=== PATIENT | female | born 1970 | race Caucasian/White ===

== ENCOUNTER 2017-07-11 05:26 | Day surgery (SDC) | payer MEDICAID, SELFPAY ==
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
[2017-07-11] VITALS (9 sets, daily range): BP systolic 96–126; BP diastolic 58–89; PULSE 65–84; RESP 16; TEMP 36–36.9; O2SAT 91–98; BMI 24.3
[2017-07-11] MEDS: Cefazolin 2 GM in 0.9% Normal Saline 100 ML IV (07:17)
[2017-07-11] MEDS: Betamethasone/Betamethasone 30 MG/5 ML Vial (07:28)
--- NOTE | 2017-07-11 10:29 | PCM.OPRPT ---
Report of Operation Date of Procedure: 07/11/17 Pre-Operative Diagnosis: 1. Left first carpometacarpal joint osteoarthritis. 2. Left carpal tunnel syndrome. 3. Right first carpometacarpal joint osteoarthritis Post-Operative Diagnosis: 1. Left first carpometacarpal joint osteoarthritis. 2. Left carpal tunnel syndrome. 3. Right first carpometacarpal joint osteoarthritis Surgery/Procedure Performed:: 1. Left first carpometacarpal joint resection arthroplasty. 2. Left FCR tendon transfer. 3. Left carpal tunnel release. 4. Right first carpometacarpal joint injection Description of Surgical Findings:: Well reconstructed joint, complete release left transverse carpal ligament senior wind turbine technician: Harrison Mendes Type of Anesthesia:: General Anesthesiologist: Tobin Weinberg Special Medications: 2 g Ancef IV Specimen's removed: Trapezium Estimated Blood Loss (mL): 5 Fluids Replaced: 700 ml Description of Procedure: Operative indications: 46-year-old F failed conservative measures for first CMC osteoarthritis, and left carpal tunnel syndrome with concurrent right first see osteoarthritis. X-rays show joint space narrowing, subluxation of the joint and osteophyte formation as well as subchondral sclerosis. We discussed surgical intervention including first CMC arthroplasty with tendon transfer. Risks and benefits discussed included but were not limited to blood loss, DVTs, PEs, neurovascular damage, infection, general risk of anesthesia, hematoma and weakness. Patient demonstrated understanding was able to sign informed consent. Procedure: On the date of the procedure the patient's L hand was marked in the preoperative area. R hand was also marked with a syringe. Patient was taken back to the operating room where they were transferred to the table in the supine position. Anesthesia assumed control the C-spine airway and remained in control throughout the remainder of the procedure. All bony prominences were identified and well-padded. The right first CMC joint was prepped in a sterile fashion. Timeout was called and when agreed upon the procedure and patient identity for a R first carpal metacarpal joint corticosteroid injection. 1/2 mL of 1% lidocaine and 1/2 mL of betamethasone were injected into the joint with a 22-gauge needle. Needle was removed and Band-Aid was placed. The operative extremity was prepped in a sterile fashion. Surgeon then scrubbed Upon reentering the room, the L upper extremity was draped in a standard orthopedic fashion. Incision was marked out. Timeout was called everyone agreed upon the side, the site, the procedure to be performed, patient identity and antibiotics given. Esmarch bandage was used to exsanguinate the extremity. Tourniquet was placed up to 250 mmHg. The Incision over the carpal tunnel was taken at the skin subtenons tissue fat down to fascia. Fascia was then lightly tethered until the median nerve was visible. A Eckert was placed proximally and distally, and then scissors were placed proximally and distally to release the transverse carpal ligament. During the release the others were never completely closed. The Eckert was then placed proximally and distally once more to verify the transverse carpal ligament had been adequately released. The wound was then copiously irrigated out with normal saline. Wound was then closed using 3-0 nylon suture. Incision for the reconstruction was taken down through skin. Blunt dissection was taken through subcutaneous tissues. Superficial nerve was identified and retracted out of the way. Radial artery was identified and retracted out of the way. Once we are able to identify the joint arthrotomy was made and the trapezium was identified. Once the trapezium was identified dorsal and volar aspects were debrided of connective tissue. Saw was then used to make a cruciform cut in an osteotomy was completed with the osteotome. Once this was done a rondure was used to remove the bone fragments and the trapezium in its entirety. Attention was then directed towards the FCR to harvest. FCR was identified in the wrist and FiberWire suture was placed around it passed up into the forearm. We then made a small incision in the form and brought the FiberWire through. Transection of the FCR was done in the forearm. The FCR tendon was then fed down to the wrist and into the joint in the previous incision. Vicryl suture was then used to tag the end of the graft for transfer. Attention was then directed towards the proximal end of the first metacarpal. A bur was used to make a bone tunnel for tendon transfer. Loop suture was then passed through the upper holes and used to pull the graft through the bone tunnel. Once this was done a sling was made and 3-0 Ethibond suture was used to tie the tendon on itself. Once the tendon was appropriately secured anchovy was made with the remainder of the tendon. This was sewn down into the joint using 3-0 Ethibond. Copious amounts of irrigation were used throughout the procedure and prior to closure of the wound. Arthrotomy was closed with 2-0 Vicryl skin was closed with 2-0 Vicryl and 4-0 Monocryl with Steri-Strips. Xeroform dressing was placed. Sterile dressing was placed. Compressive dressing was placed. Tourniquet was let down. Well-padded splint was then placed with the thumb in abduction. Patient was then awakened by anesthesia and transferred to the PACU for recovery. Postoperative plan: Patient will remain in the splint for 2 weeks. 2 weeks we will check the incision and remove any sutures or tails. He will be transferred to a cast and abduction at that time. They will then follow standard postoperative protocol for first CMC arthroplasty with Occupational Therapy. Grafts/Implants Used: none - Complications none - Admit VTE Documentation VTE Present on Admission: No VTE Mechan Device Prophylaxis: SCD's, Thigh High QUINCY Hose VTE Pharm Prophylaxis ordered?: No Reason prophylaxis not ordered:: Treatment Not Indicated
== END 2017-07-11 11:05 | disposition home or self-care (01) ==
LOC: SDC 05:27 → AC 05:29
PROVIDERS: Visit Provider Specialist
PROC: (CPT 25447; principal; 2017-07-11 07:00)
DX: M18.0 Bilateral primary osteoarthritis of first carpometacarpal joints (principal); G56.02 Carpal tunnel syndrome, left upper limb; F32.9 Major depressive disorder, single episode, unspecified
CPT/HCPCS: 25312; 26520; 64417; 64721; J7120; J0702

== ENCOUNTER → 2017-11-22 09:49 | Outpatient (CLI) | payer MEDICAID, SELFPAY ==
[2017-11-22 12:02] LABS: Free T3 3.2 pg/mL (2.18-3.98); T4 Free Direct 0.95 ng/dL (0.76-1.46); Thyroid Stim Hormone (TSH) 1.26 uIU/mL (0.358-3.74)
== END ==
PROVIDERS: Visit Provider Obstetrics & Gynecology
DX: R53.83 Other fatigue (principal)
CPT/HCPCS: 36415; 84439; 84443; 84481

== ENCOUNTER 2022-01-24 17:26 | Emergency (ER) | payer MEDICAID, SELFPAY ==
[2022-01-24 17:27] VITALS: BP 110/79; PULSE 78; RESP 15; TEMP 36.6; O2SAT 97; BMI 25.0
[2022-01-24 18:10] LABS: Absolute Lymphocyte Count 2.01 X10^3/uL (0.83-4.51); Absolute Neutrophil Count 1.4 X10^3/uL (2.0-7.7); Basophil# 0.03 X10^3/uL; Basophil% 0.8 % (0-1); Eosinophil# 0.13 X10^3/uL; Eosinophils% 3.3 % (0-5); Hematocrit 35.8 % (37-47); Hemoglobin 12.1 g/dL (12.0-15.0); Lymphocyte # 2.01 X10^3/ul (0.83-4.51); Lymphocyte % 50.8 % (19-41); Mean Corp Hgb Conc 33.8 g/dL (32-36); Mean Corpuscular Hgb 31.8 pg (27.0-32.0); Mean Platelet Vol. 10.6 fl (6.2-12.0); Monocyte% 10.1 % (0-10); NRBC Flagged by Analyzer 0 % (0-5); Neutrophil # 1.38 X10^3/uL (2.7-7.7); Neutrophil % 34.7 % (47-70); Platelet Count 165 K/mm3 (150-450); RBC Distribution Width CV 13.4 % (11.6-14.6); RBC Distribution Width SD 45.9 fl (35.1-43.9); Red Blood Count 3.81 M/mm3 (4.2-5.4)
[2022-01-24 18:22] LABS: Anion Gap 2 (5-15); BUN 11 mg/dL (7-18); BUN/Creat Ratio 14.6 RATIO (10-20); Calcium,Total 9.1 mg/dL (8.5-10.1); Chloride 109 mmol/L (98-107); Creatinine, Serum 0.76 mg/dL (0.55-1.02); EST Glomerular Filtration Rate 85 mL/min (>60); Est Glom Filt Rate - Afr Amer 103 mL/min (>60); Estimated Creatinine Clearance 67.71 ml/min; Glucose 81 mg/dL (74-106); Potassium 3.5 mmol/L (3.5-5.1); Sodium Level 140 mmol/L (136-145)
[2022-01-24 18:40] LABS: Internal QC Validated? YES +Cl - CLEAR BKGD; Pregnancy, Serum, hCG Quali. NEGATIVE Negative
--- NOTE | 2022-01-24 22:20 | RAD_ITS ---
STUDY: X-RAY - UNILATERAL RIBS ( LEFT ) WITH CHEST REASON FOR EXAM: Female, 51 years old. Pain TECHNIQUE - RIBS: 4 view(s) of the ribs. TECHNIQUE - CHEST: PA COMPARISON: None. FINDINGS - RIBS: Normal visualized ribs without a demonstrated fracture. FINDINGS - CHEST: There is minor interstitial thickening or discoid atelectasis in the left lower lobe.. There is no demonstrated pleural abnormality. Normal size heart. Normal mediastinum and sherri. Normal visualized pulmonary arteries. Normal visualized aortic arch and descending thoracic aorta. Dorsal spine demonstrates degenerative change and chronic compression fractures.. Normal visualized , clavicles, and shoulders. There is no demonstrated abnormality of the visualized soft tissue structures of the upper abdomen. RAD/Ribs Uni Min 3V w/PA Chest IMPRESSION: RIBS: Normal x-ray examination of the ribs. CHEST: Minor interstitial thickening with discoid atelectasis at the left base Electronically Signed: Thuan Polk MD at 22:41 EST ,
--- NOTE | 2022-01-24 22:41 | EX.ED.DYSGE1 ---
HPI History of Present Illness Chief Complaint: Abd Pain Informant: patient Onset/Context/Timing Onset: Month(s) (6-8) Context: Gradual Onset Timing: Continuous Quality: Sharp, burning Location: Left lower ribs Worsened by: Movement Relieved by: Nothing Narrative Narrative: Patient presents with left-sided rib pain began approximately 6 to 8 months ago. Patient states that it became worse over the past few days. Patient states she tried to push on a door that was blocked by heavy object. Patient states this became worse after this. Patient describes her pain as sharp and burning. Patient states the pain is over the left lower ribs. Patient states it is worse with certain movements. Patient denies any nausea or vomiting. Patient admits to some pain in her chest when she coughs. Patient denies any sputum production. Patient denies any fevers or chills. Patient admits to a mild headache. [facility] Medical History (Updated 01/24/22 @ 23:[address] Pardeep Rosado, DO) Depression PTSD (post-traumatic stress disorder) Home Medications Omeprazole [Prilosec] 40 mg PO DAILY 07/24/16 [History Last Taken 07/11/17 05:00] escitalopram oxalate 20 mg tablet 20 mg PO DAILY 07/24/16 [History Last Taken Unknown] gabapentin 800 mg tablet 800 mg PO 4X/DAY 07/24/16 [History Last Taken Unknown] oxycodone 5 mg tablet 5 - 10 mg PO Q4H PRN PRN Mod-Severe Pain (4-10/10) #30 tabs 08/02/16 [Rx Last Taken Unknown] estradiol 2 mg tablet (Estrace) 2 mg PO DAILY #30 tabs 08/03/16 [Rx Last Taken Unknown] buspirone 7.5 mg tablet 7.5 mg PO DAILY 07/03/17 [History Last Taken Unknown] hydroxyzine HCl 25 mg tablet 25 mg PO QHS 07/03/17 [History Last Taken Unknown] oxycodone-acetaminophen 5 mg-325 mg tablet 1 tab PO Q6H PRN PRN Pain 3 days #12 TABLETS 01/24/22 [Rx Last Taken Unknown] Allergy/AdvReac Type Severity Reaction Status Date / Time acetaminophen [From Vicodin] Allergy Itching Verified 01/24/22 17:27 hydrocodone [From Vicodin] Allergy Itching Verified 01/24/22 17:27 ibuprofen Allergy Anaphylaxis Verified 01/24/22 17:27 Sulfa (Sulfonamide Allergy Unknown Verified 01/24/22 17:27 Antibiotics) aspirin AdvReac Other Verified 01/24/22 17:27 Surgical History (Updated 01/24/22 @ 22:[address] Pardeep Rosado DO) H/O total hysterectomy with bilateral salpingo-oophorectomy (BSO) Hx of cholecystectomy Social History Smoking Status: Current every day smoker tobacco type: cigarettes ROS ROS ED Constitutional Constitutional ED: Denies chills or fever(s) Eyes Eyes: Denies blurry vision or change in vision ENT ENT ED: Denies rhinorrhea or sore throat Cardiovascular Cardiovascular: Reports chest pain; Denies palpitations Respiratory/Chest Respiratory/Chest: Reports cough; Denies dyspnea Gastrointestinal Gastrointestinal: Denies nausea or vomiting Genitourinary Genitourinary ED: Denies dysuria or hematuria Musculoskeletal Musculoskeletal: Denies back pain or neck pain Integumentary Denies abscess or rash Neurologic Neurologic: Reports headache(s); Denies weakness Allergic/Immunologic Allergic/Immunologic ED: Denies mouth swelling or urticaria EXAM Physical Exam Const Vital Signs: 01/24/22 17:27 Temperature 97.8 F Temperature Source Temporal Pulse Rate 78 Respiratory Rate 15 Blood Pressure 110/79 Blood Pressure Mean 89 Pulse Ox 97 Oxygen Delivery Method Room Air Positive well nourished and well developed General Appearance ED: well developed and NAD HEENT Reports moist mucous membranes Neck supple and no JVD Chest Wall Chest Narrative: There is tenderness over the left lower ribs along the fifth through eighth ribs. There is no edema or ecchymosis. There is no bony crepitance or step-off. Resp normal respiratory effort and clear to auscultation bilaterally Cardio regular rate, regular rhythm and no murmurs GI normal to inspection, nondistended, normoactive bowel sounds and non-tender Palpation: soft Extremity normal to inspection General Extremety ED: Negative for edema or tenderness General Extremity: Negative for edema Neuro oriented x3, CN's II-XII intact bilaterally and no sensory deficits noted Sensorium / Orientation: alert Motor Exam: strength 5/5 throughout Psych mental status grossly normal Skin no rashes or lesions noted MDM MDM MDM Narrative Medical decision making narrative: CBC shows a white blood cell count of 4.0. Basic metabolic profile was within normal limits. Serum hCG was negative. X-rays of the left ribs were obtained. There are 5 views. On my interpretation, there is no acute fracture. There is no pneumothorax. Radiologist also interpreted the x-rays and agrees. Patient was advised of her findings. Patient was instructed to use ice to the area. Patient was instructed to continue her gabapentin as prescribed. Patient was given a dose of oxycodone here. Patient was given a prescription for a short course of Percocet. Patient was instructed to follow-up with her primary care physician in 3 to 5 days. Patient understood and was agreeable with the plan. All questions were answered. Lab Data Attestation: I reviewed the patient's lab results. Labs: Laboratory Results - last 24 hr 01/24/22 01/24/22 01/24/22 17:59 17:59 17:59 WBC 4.0 L RBC 3.81 L Hgb 12.1 Hct 35.8 L MCV 94.0 MCH 31.8 MCHC 33.8 RDW Std Deviation 45.9 H RDW Coeff of Samira 13.4 Plt Count 165 MPV 10.6 Immature Gran % (Auto) 0.300 Neut % (Auto) 34.7 L Lymph % (Auto) 50.8 H Kendall % (Auto) 10.1 H Eos % (Auto) 3.3 Baso % (Auto) 0.8 Absolute Neuts (auto) 1.4 L Absolute Lymphs (auto) 2.01 Nucleated RBC % 0 Sodium 140 Potassium 3.5 Chloride 109 H Carbon Dioxide 29.0 Anion Gap 2 L BUN 11 Creatinine 0.76 Estim Creat Clear Calc 67.71 Est GFR (MDRD) Af Amer 103 Est GFR (MDRD) Non-Af 85 BUN/Creatinine Ratio 14.6 Glucose 81 Calcium 9.1 Serum , Qual NEGATIVE Radiography Diagnostic Testing: Clinical Impression(s) from Imaging Studies Ribs w/Chest X-Ray 01/24/22 22:20 IMPRESSION: RIBS: Normal x-ray examination of the ribs. CHEST: Minor interstitial thickening with discoid atelectasis at the left base Electronically Signed: Thuan Polk MD at 22:41 EST , Discharge Plan Triage Chief Complaint: Abd Pain ED Provider: Pardeep Rosado Dx/Rx/DC Orders Clinical Impression: Chest wall muscle strain Instructions: ED Chest Wall Strain Prescriptions: New oxycodone-acetaminophen [oxycodone-acetaminophen] 5-325 mg tablet 1 tab PO Q6H PRN PRN (Reason: Pain) 3 Days Qty: 12 0RF No Action gabapentin 800 MG tablet 800 mg PO 4X/DAY escitalopram oxalate 20 MG tablet 20 mg PO DAILY Omeprazole [Prilosec] 40 MG capsule 40 mg PO DAILY oxycodone 5 MG tablet 5 - 10 mg PO Q4H PRN PRN (Reason: Mod-Severe Pain (-11/28)) Qty: 30 0RF estradiol [Estrace] 2 MG tablet 2 mg PO DAILY Qty: 30 6RF buspirone 7.5 MG tablet 7.5 mg PO DAILY Label Comments: hydroxyzine HCl 25 MG tablet 25 mg PO QHS Label Comments: Primary Care Provider: Care Physician,No Primary Referrals: Douglas Bassett DO [Med Staff - Processing Supervisor] - 3-5 Days Care Physician,No Primary [Primary Care Provider] - Disposition Disposition: Home, Self Care
[2022-01-24] MEDS: oxyCODONE 5 MG Tablet PO (23:22)
== END 2022-01-24 23:26 | disposition home or self-care (01) ==
PROVIDERS: Emergency Provider Emergency Medicine; Visit Provider Emergency Medicine
DX: S29.011A Strain of muscle and tendon of front wall of thorax, initial encounter (principal); R10.9 Unspecified abdominal pain; R51.9 Headache, unspecified; F17.210 Nicotine dependence, cigarettes, uncomplicated; X50.0XXA Overexertion from strenuous movement or load, initial encounter
CPT/HCPCS: 71101; 80048; 84703; 85025; 99284; A4216